=== PATIENT | male | born 2000 | race African-American/Black ===

== ENCOUNTER 2023-11-30 12:06 | Emergency (ER) | payer MEDICAID ==
[~2023-11-30] VITALS: Ht 182.9 cm; Wt 81.8 kg
[2023-11-30 12:18] VITALS: O2SAT 100
[2023-11-30] MEDS ORDERED: CYCL5TAB MT (14:34)
[2023-11-30] MEDS ORDERED: IBUP-2028 MT (14:34)
[2023-11-30] MEDS ORDERED: LIDO700A15 TP (14:34)
[2023-11-30] MEDS ORDERED: ACET-2708 MT (14:34)
[2023-11-30 15:01] VITALS: BP 128/78; PULSE 62; RESP 12; TEMP 98.2
[2023-11-30] MEDS: KETOROLAC 60MG/2ML VIAL IM ONE (15:01)
== END 2023-11-30 15:04 | disposition home or self-care (01) ==
LOC: ER 12:06
DX: S16.1XXA Strain of muscle, fascia and tendon at neck level, initial encounter (principal); S39.012A Strain of muscle, fascia and tendon of lower back, initial encounter; V49.9XXA Car occupant (driver) (passenger) injured in unspecified traffic accident, initial encounter; Y93.89 Activity, other specified; Y92.89 Other specified places as the place of occurrence of the external cause; Y99.8 Other external cause status
CPT/HCPCS: 99283; 96372; J1885